=== PATIENT | male | born 2000 | race Two or more races ===

== ENCOUNTER 2021-02-25 15:43 | Emergency (ER) | payer MEDICAID ==
[~2021-02-25] VITALS: Ht 175.3 cm; Wt 68.2 kg
[2021-02-25] MEDS ORDERED: HydrOXYzine PAMOATE 25 MG CAPSULE PO ONE (16:30)
[2021-02-25 16:51] LABS: GLUCOSE,POINT OF CARE 89 MG/DL (70-110)
[2021-02-25 16:54] LABS: COVID AG,FIA SOURCE NASOPHARYNGEAL
[2021-02-25 17:10] LABS: AMPHET/METH SCREEN,URINE NEGATIVE (NEGATIVE); BARBITURATE SCREEN, URINE NEGATIVE (NEGATIVE); BENZODIAZEPINES SCREEN,URINE NEGATIVE (NEGATIVE); CANNABINOID SCREEN,URINE POSITIVE (NEGATIVE); COCAINE SCREEN,URINE NEGATIVE (NEGATIVE); METHADONE SCREEN, URINE NEGATIVE (NEGATIVE); OPIATE SCREEN,URINE NEGATIVE (NEGATIVE); PHENCYCLIDINE SCREEN,URINE NEGATIVE (NEGATIVE)
[2021-02-25 17:36] VITALS: BP 122/60
== END 2021-02-25 17:37 | disposition home or self-care (01) ==
LOC: EMS 16:02
DX: F41.9 Anxiety disorder, unspecified (principal); F15.10 Other stimulant abuse, uncomplicated; F12.90 Cannabis use, unspecified, uncomplicated; Z20.822 Contact with and (suspected) exposure to COVID-19; Z79.899 Other long term (current) drug therapy
CPT/HCPCS: 71045; 82948; 82962; 99284